=== PATIENT | male | born 1995 | race Two or more races ===

== ENCOUNTER 2023-03-28 17:15 | Emergency (ER) | payer OTHER | END 2023-03-28 20:10 | LOC: JD.ED 17:15 | DX: S00.03XA Contusion of scalp, initial encounter (principal); K08.89 Other specified disorders of teeth and supporting structures; Z79.899 Other long term (current) drug therapy; Z87.891 Personal history of nicotine dependence; Y04.0XXA Assault by unarmed brawl or fight, initial encounter | CPT/HCPCS: 70450; 70450-26; 70486; 70486-26; 99283; 99284 ==